=== PATIENT | male | born 1970 ===

== ENCOUNTER 2019-09-28 02:46 | Inpatient (IN) ==
[2019-09-28] MEDS ORDERED: DEXTROSE 50% 25 GM/50 ML VIAL IV PRN (06:10)
[2019-09-28] MEDS ORDERED: GLUCAGON 1 MG VIAL IM PRN (06:10)
[2019-09-28] MEDS ORDERED: SODIUM BICARB INJ 50 MEQ in SODIUM CHLORIDE 0.45% 1,000 ML IV SCH (07:30)
[2019-09-28 07:48] LABS: Basophils % 0.3 % (0.0-0.8); Eosinophils # 0.3 10*3/uL (0.0-0.87); Eosinophils % 2.9 % (0.00-10.9); Hematocrit 27.6 VOL% (42.0-52.0); Hemoglobin 8.3 GM/DL (14.0-18.0); Immature Granulocytes Absolute 0.12 #; Lymphocytes # 1.7 10*3/uL (1.4-4.0); Lymphocytes % 14.9 % (21.2-54.2); Mean Corpuscular HGB Conc 30.1 GM/DL (32-36); Mean Corpuscular Volume 95.8 FL (87-102); Mean Platelet Volume 13.5 FL (9.6-12.0); Monocytes % 9.1 % (1.7-12.7); Neutrophils % 71.8 % (38.7-73.9); Platelet Count 155 T/CUMM (130-400); Red Blood Count 2.88 MC/CUMM (3.8-5.5); Red Cell Distribution Width 15.2 % (9.3-17.3); White Blood Count 11.7 T/CUMM (4-12)
[2019-09-28 08:02] LABS: INR 0.9; PT Patient Result 9.8 SECS (9.6-12.2); Partial Thromboplastin Time 34.1 SECS (20.8-36.0)
[2019-09-28 08:07] LABS: Alanine Aminotransferase 16 U/L (16-61); Albumin 1.9 G/DL (3.4-5.0); Alkaline Phosphatase 132 U/L (45-117); Aspartate Amino Transferase 11 U/L (0-37); Bilirubin,Total < 0.39 MG/DL (0.2-1.0); Blood Urea Nitrogen 77 MG/DL (7-18); Calcium 7.3 MG/DL (8.5-10.1); Estimated Glom Filtration Rate 10 ML/MIN; Glucose 115 MG/DL (74-106); Osmolality,Calculated 298.7 MOS/KG (273-304); Total Protein 6.7 G/DL (6.4-8.3)
[2019-09-28] MEDS: NICOTINE 14 MG/24 HR PATCH TRANSDERM SCH (09:00)
[2019-09-28] MEDS ORDERED: ceFAZolin 1,000 MG in SYRINGE 1 EACH IV ONE (12:08)
[2019-09-28] MEDS: INSULIN LISPRO 100 UNIT/ML SUBCUT SCH ×2 (12:15→18:01)
[2019-09-28] MEDS ORDERED: LIDOCAINE 1%/EPI INJ 20 ML VIAL ONE (13:02)
[2019-09-28] MEDS ORDERED: BUPIVACAINE MPF 0.25% 30 ML VIAL ONE (13:02)
[2019-09-28 13:04] LABS: Hepatitis B Surface Ag Quant < 0.10 Index; Hepatitis B Surface Ag Result Negative (Negative)
[2019-09-28] MEDS ORDERED: HEPARIN 1,000 UNIT/1 ML VIAL ONE (13:04)
[2019-09-28] MEDS ORDERED: HEPARIN 5,000 UNIT/1 ML VIAL ONE (13:38)
[2019-09-28] MEDS ORDERED: propofoL 200 MG/20 ML VIAL IV ONE (14:43)
[2019-09-28] MEDS ORDERED: MIDAZOLAM 2 MG/2 ML VIAL ONE (14:44)
[2019-09-28] MEDS ORDERED: LIDOCAINE 2% 5 ML VIAL ONE (14:44)
[2019-09-28] MEDS ORDERED: DEXAMETHASONE 4 MG/1 ML VIAL ONE (14:44)
[2019-09-28] MEDS ORDERED: ONDANSETRON 4 MG/2 ML VIAL ONE (14:44)
[2019-09-28] MEDS ORDERED: HEPARIN 10,000 UNIT/10 ML VIAL IV SCH (20:00)
[2019-09-28] MEDS ORDERED: DEXTROSE 50% 25 GM/50 ML SYRINGE IV PRN (20:42)
[2019-09-29] MEDS: INSULIN LISPRO 100 UNIT/ML SUBCUT SCH ×4 (00:54→18:14)
[2019-09-29 05:51] LABS: Basophils % 0.2 % (0.0-0.8); Eosinophils % 0.2 % (0.00-10.9); Hematocrit 25.1 VOL% (42.0-52.0); Hemoglobin 7.9 GM/DL (14.0-18.0); Immature Granulocytes % 0.9 %; Lymphocytes % 8.9 % (21.2-54.2); Mean Corpuscular HGB Conc 31.5 GM/DL (32-36); Mean Corpuscular Volume 91.6 FL (87-102); Monocytes % 5.9 % (1.7-12.7); Neutrophils % 83.9 % (38.7-73.9); Platelet Count 175 T/CUMM (130-400); Red Blood Count 2.74 MC/CUMM (3.8-5.5); Red Cell Distribution Width 14.7 % (9.3-17.3); White Blood Count 10.7 T/CUMM (4-12)
[2019-09-29 06:21] LABS: Calcium 7.3 MG/DL (8.5-10.1); Osmolality,Calculated 294.8 MOS/KG (273-304)
[2019-09-29] MEDS: NICOTINE 14 MG/24 HR PATCH TRANSDERM SCH (10:07)
[2019-09-30] MEDS: INSULIN LISPRO 100 UNIT/ML SUBCUT SCH ×3 (00:43→12:05)
[2019-09-30] MEDS: NICOTINE 14 MG/24 HR PATCH TRANSDERM SCH (08:40)
[2019-09-30 12:07] VITALS: BP 177/89
[2019-09-30] MEDS ORDERED: INSULIN GLARGINE 100 UNIT/ML SUBCUT SCH (21:00)
== END 2019-09-30 15:40 | disposition home or self-care (01) | DRG 673 ==
LOC: SUATTDRO 04:14 → N.5E 04:14
PROVIDERS: ADMIT Internal Medicine; ATTEND Internal Medicine

== ENCOUNTER 2020-01-15 19:02 | Inpatient (IN) ==
[2020-01-15] MEDS ORDERED: guaiFENesin/DM ER 600-30 MG TABLET PO PRN (22:27)
[2020-01-15] MEDS ORDERED: hydrALAZINE 20 MG/1 ML VIAL IV PRN (22:27)
[2020-01-15] MEDS ORDERED: ONDANSETRON 4 MG/2 ML VIAL IV PRN (22:27)
[2020-01-15] MEDS ORDERED: diphenhydrAMINE CAP 25 MG CAPSULE PO PRN (22:27)
[2020-01-15] MEDS ORDERED: DEXTROSE 50% 25 GM/50 ML VIAL IV PRN (22:27)
[2020-01-15] MEDS ORDERED: NICOTINE 21 MG/24 HR PATCH TRANSDERM PRN (22:27)
[2020-01-15] MEDS ORDERED: GLUCAGON 1 MG VIAL IM PRN (22:27)
[2020-01-15] MEDS ORDERED: DEXTROSE 10% 250 ML BAG IV PRN (22:46)
[2020-01-15] MEDS: INSULIN REGULAR 100 UNIT/ML SUBCUT SCH (23:15)
[2020-01-15] MEDS: cefTRIAXone 1,000 MG in SYRINGE 1 EACH IV SCH (23:15)
[2020-01-16 00:45] LABS: Basophils % 0.3 % (0.0-0.8); Eosinophils % 0.2 % (0.00-10.9); Hematocrit 41.8 VOL% (42.0-52.0); Hemoglobin 13.1 GM/DL (14.0-18.0); Immature Granulocytes % 0.3 %; Immature Granulocytes Absolute 0.02 #; Lymphocytes # 1.2 10*3/uL (1.4-4.0); Mean Corpuscular HGB Conc 31.3 GM/DL (32-36); Mean Corpuscular Volume 91.7 FL (87-102); Monocytes % 20.5 % (1.7-12.7); Neutrophils % 57.7 % (38.7-73.9); Red Blood Count 4.56 MC/CUMM (3.8-5.5); Red Cell Distribution Width 13.2 % (9.3-17.3); White Blood Count 5.9 T/CUMM (4-12)
[2020-01-16 00:48] LABS: Platelet Count 109 T/CUMM (130-400)
[2020-01-16 00:54] LABS: Alanine Aminotransferase 20 U/L (16-61); Albumin 2.5 G/DL (3.4-5.0); Alkaline Phosphatase 186 U/L (45-117); Aspartate Amino Transferase 31 U/L (0-37); Bilirubin,Total < 0.39 MG/DL (0.2-1.0); Blood Urea Nitrogen 27 MG/DL (7-18); Calcium 7.6 MG/DL (8.5-10.1); Estimated Glom Filtration Rate 14 ML/MIN; Glucose 109 MG/DL (74-106); Osmolality,Calculated 271.4 MOS/KG (273-304); Total Protein 6.9 G/DL (6.4-8.3)
[2020-01-16 01:06] LABS: Ferritin 1261.1 ng/ml (26-388)
[2020-01-16] MEDS: ACETAMINOPHEN 325 MG TABLET PO PRN ×3 (01:40→21:05)
[2020-01-16 02:05] LABS: Eosinophils 2 % (0-10); Lymphocytes 21 % (20-55); Segmented Neutrophils 64 % (50-85)
[2020-01-16 02:06] LABS: Hypochromasia 1+; Platelet Estimate Normal; Reactive Lymphocytes Few
[2020-01-16 02:07] LABS: Total Cells Counted 100
[2020-01-16] MEDS: INSULIN REGULAR 100 UNIT/ML SUBCUT SCH ×3 (06:15→17:48)
[2020-01-16] MEDS: HEPARIN 5,000 UNIT/1 ML VIAL SUBCUT SCH ×2 (08:26→16:34)
[2020-01-16] MEDS: AZITHROMYCIN 250 MG TABLET PO SCH (08:26)
[2020-01-16 08:31] LABS: ABG Base Excess 6.7 MMOL/L (-2.5-2.5); ABG HCO3 30.3 MMOL/L (20-26); ABG Oxygen Saturation 87.4 % (95-100); ABG PCO2 48.7 MM HG (35-48); ABG PO2 53.9 MM HG (80-95); ABG TCO2 28.5 MMOL/L (23-27)
[2020-01-16 09:28] LABS: Basophils % 0.3 % (0.0-0.8); Eosinophils % 0.3 % (0.00-10.9); Hematocrit 39.1 VOL% (42.0-52.0); Hemoglobin 12.1 GM/DL (14.0-18.0); Immature Granulocytes % 0.3 %; Immature Granulocytes Absolute 0.02 #; Lymphocytes # 0.7 10*3/uL (1.4-4.0); Lymphocytes % 10.8 % (21.2-54.2); Mean Corpuscular HGB Conc 30.9 GM/DL (32-36); Mean Corpuscular Volume 92.4 FL (87-102); Neutrophils % 72.3 % (38.7-73.9); Platelet Count 103 T/CUMM (130-400); Red Blood Count 4.23 MC/CUMM (3.8-5.5); Red Cell Distribution Width 13.2 % (9.3-17.3); White Blood Count 6.6 T/CUMM (4-12)
[2020-01-16 10:05] LABS: Band Neutrophils 5 % (0-10); Hypochromasia 1+; Lymphocytes 7 % (20-55); Microcytosis Slight; Segmented Neutrophils 74 % (50-85); Total Cells Counted 100
[2020-01-16 10:06] LABS: Platelet Estimate Decreased
[2020-01-16] MEDS: hydrALAZINE 25 MG TABLET PO SCH ×2 (10:32→21:55)
[2020-01-16] MEDS: FUROSEMIDE 80 MG TABLET PO SCH ×2 (10:32→21:55)
[2020-01-16] MEDS: metOLazone 2.5 MG TABLET PO SCH (10:32)
[2020-01-16] MEDS: GABAPENTIN 300 MG CAPSULE PO SCH (10:32)
[2020-01-16 10:36] LABS: Sedimentation Rate-Westergren 33 MM/HR (0-15)
[2020-01-16 11:06] LABS: Alanine Aminotransferase 20 U/L (16-61); Albumin 2.3 G/DL (3.4-5.0); Alkaline Phosphatase 170 U/L (45-117); Aspartate Amino Transferase 32 U/L (0-37); Bilirubin,Total < 0.39 MG/DL (0.2-1.0); Blood Urea Nitrogen 30 MG/DL (7-18); Calcium 7.5 MG/DL (8.5-10.1); Estimated Glom Filtration Rate 12 ML/MIN; Ferritin 1258.6 ng/ml (26-388); Glucose 134 MG/DL (74-106); Osmolality,Calculated 273.4 MOS/KG (273-304); Total Protein 7.1 G/DL (6.4-8.3)
[2020-01-16] MEDS ORDERED: ACETAMINOPHEN 500 MG TABLET PO ONE (12:23)
[2020-01-16] MEDS: INSULIN GLARGINE 100 UNIT/ML SUBCUT SCH (22:38)
[2020-01-16] MEDS: cefTRIAXone 1,000 MG in SYRINGE 1 EACH IV SCH (23:50)
[2020-01-17] MEDS: INSULIN REGULAR 100 UNIT/ML SUBCUT SCH ×4 (01:13→17:10)
[2020-01-17] MEDS: HEPARIN 5,000 UNIT/1 ML VIAL SUBCUT SCH ×3 (01:14→16:13)
[2020-01-17] MEDS: ACETAMINOPHEN 325 MG TABLET PO PRN ×4 (04:10→21:35)
[2020-01-17 04:45] LABS: ABG Base Excess 4.4 MMOL/L (-2.5-2.5); ABG HCO3 28.2 MMOL/L (20-26); ABG Oxygen Saturation 92.9 % (95-100); ABG PCO2 45.6 MM HG (35-48); ABG PO2 65.1 MM HG (80-95); ABG TCO2 26.4 MMOL/L (23-27); Allen Test Positive; Pt O2 Delivery Device Room Air
[2020-01-17 06:30] LABS: Albumin 2.2 G/DL (3.4-5.0); Bilirubin,Total 0.4 MG/DL (0.2-1.0); Calcium 6.8 MG/DL (8.5-10.1); Ferritin 1399.9 ng/ml (26-388); Osmolality,Calculated 272.5 MOS/KG (273-304); Total Protein 6.7 G/DL (6.4-8.3)
[2020-01-17 06:40] LABS: Basophils % 0.4 % (0.0-0.8); Eosinophils % 0.2 % (0.00-10.9); Hemoglobin 11.8 GM/DL (14.0-18.0); Immature Granulocytes % 0.5 %; Immature Granulocytes Absolute 0.03 #; Lymphocytes # 0.8 10*3/uL (1.4-4.0); Lymphocytes % 15.4 % (21.2-54.2); Mean Corpuscular HGB Conc 31.1 GM/DL (32-36); Mean Corpuscular Volume 92.2 FL (87-102); Monocytes % 17.9 % (1.7-12.7); Neutrophils % 65.6 % (38.7-73.9); Red Blood Count 4.12 MC/CUMM (3.8-5.5); Red Cell Distribution Width 13.2 % (9.3-17.3); White Blood Count 5.5 T/CUMM (4-12)
[2020-01-17 06:59] LABS: Platelet Count 58 T/CUMM (130-400)
[2020-01-17 07:23] LABS: Band Neutrophils 5 % (0-10); Giant Platelets 2+; Lymphocytes 12 % (20-55); Metamyelocytes 1 %; Platelet Estimate Decreased; Segmented Neutrophils 63 % (50-85)
[2020-01-17 07:24] LABS: Total Cells Counted 100
[2020-01-17] MEDS: metOLazone 2.5 MG TABLET PO SCH (08:01)
[2020-01-17] MEDS: AZITHROMYCIN 250 MG TABLET PO SCH (08:01)
[2020-01-17] MEDS: FUROSEMIDE 80 MG TABLET PO SCH ×2 (08:01→21:20)
[2020-01-17] MEDS: GABAPENTIN 300 MG CAPSULE PO SCH (08:01)
[2020-01-17] MEDS: hydrALAZINE 25 MG TABLET PO SCH ×2 (08:01→21:20)
[2020-01-17] MEDS ORDERED: SODIUM CHLORIDE 0.65% NASAL SPRAY 45 ML BOTTLE BOTH NARES PRN (08:07)
[2020-01-17 08:19] LABS: Sedimentation Rate-Westergren 42 MM/HR (0-15)
[2020-01-17] MEDS: INSULIN GLARGINE 100 UNIT/ML SUBCUT SCH (22:37)
[2020-01-17] MEDS: cefTRIAXone 1,000 MG in SYRINGE 1 EACH IV SCH (23:10)
[2020-01-18] MEDS: HEPARIN 5,000 UNIT/1 ML VIAL SUBCUT SCH ×3 (00:10→16:44)
[2020-01-18] MEDS: INSULIN REGULAR 100 UNIT/ML SUBCUT SCH ×2 (01:51→07:02)
[2020-01-18 05:40] LABS: ABG Base Excess 1.1 MMOL/L (-2.5-2.5); ABG HCO3 26.2 MMOL/L (20-26); ABG Oxygen Saturation 85.6 % (95-100); ABG PCO2 43.6 MM HG (35-48); ABG PH 7.397 (7.35-7.45); ABG PO2 52.7 MM HG (80-95); ABG TCO2 27.6 MMOL/L (23-27)
[2020-01-18 06:31] LABS: Alanine Aminotransferase 17 U/L (16-61); Albumin 2.1 G/DL (3.4-5.0); Alkaline Phosphatase 165 U/L (45-117); Aspartate Amino Transferase 47 U/L (0-37); Bilirubin,Total < 0.39 MG/DL (0.2-1.0); Blood Urea Nitrogen 57 MG/DL (7-18); Calcium 6.1 MG/DL (8.5-10.1); Estimated Glom Filtration Rate 7 ML/MIN; Ferritin 1800.1 ng/ml (26-388); Glucose 116 MG/DL (74-106); Osmolality,Calculated 269.4 MOS/KG (273-304); Total Protein 6.5 G/DL (6.4-8.3)
[2020-01-18 07:59] LABS: Basophils % 0.2 % (0.0-0.8); Hematocrit 35.1 VOL% (42.0-52.0); Immature Granulocytes % 0.5 %; Immature Granulocytes Absolute 0.03 #; Lymphocytes # 1.1 10*3/uL (1.4-4.0); Lymphocytes % 18.8 % (21.2-54.2); Mean Corpuscular HGB Conc 31.3 GM/DL (32-36); Mean Corpuscular Volume 91.2 FL (87-102); Monocytes % 9.8 % (1.7-12.7); Neutrophils % 70.7 % (38.7-73.9); Red Blood Count 3.85 MC/CUMM (3.8-5.5); Red Cell Distribution Width 13.3 % (9.3-17.3); White Blood Count 5.7 T/CUMM (4-12)
[2020-01-18 08:01] LABS: Platelet Count 80 T/CUMM (130-400)
[2020-01-18 08:16] LABS: Hypochromasia 1+; Microcytosis Slight
[2020-01-18] MEDS ORDERED: SODIUM CHLORIDE 0.9% 1,000 ML IV PRN (08:54)
[2020-01-18] MEDS: hydrALAZINE 25 MG TABLET PO SCH (08:58)
[2020-01-18] MEDS: GABAPENTIN 300 MG CAPSULE PO SCH (08:58)
[2020-01-18] MEDS: FUROSEMIDE 80 MG TABLET PO SCH ×3 (08:58→20:30)
[2020-01-18] MEDS: metOLazone 2.5 MG TABLET PO SCH (08:58)
[2020-01-18] MEDS: AZITHROMYCIN 250 MG TABLET PO SCH (08:58)
[2020-01-18 09:27] LABS: Sedimentation Rate-Westergren 52 MM/HR (0-15)
[2020-01-18] MEDS ORDERED: diphenhydrAMINE CAP 25 MG CAPSULE PO PRN (09:36)
[2020-01-18] MEDS ORDERED: CALCIUM ACETATE 667 MG CAPSULE PO SCH (10:00)
[2020-01-18] MEDS ORDERED: INSULIN LISPRO 100 UNIT/ML SUBCUT SCH (12:00)
[2020-01-18] MEDS ORDERED: LOSARTAN 25 MG TABLET PO SCH (12:00)
[2020-01-18] MEDS: carvediloL 25 MG TABLET PO SCH ×2 (12:11→20:30)
[2020-01-18] MEDS: CALCIUM ACETATE 667 MG CAPSULE PO SCH ×2 (12:11→16:45)
[2020-01-18] MEDS: INSULIN LISPRO 100 UNIT/ML SUBCUT SCH ×3 (12:36→20:30)
[2020-01-18] MEDS: ACETAMINOPHEN 325 MG TABLET PO PRN (13:12)
[2020-01-18 14:21] LABS: ABG Base Excess -0.2 MMOL/L (-2.5-2.5); ABG HCO3 24.2 MMOL/L (20-26); ABG Oxygen Saturation 95.1 % (95-100); ABG PCO2 42.8 MM HG (35-48); ABG PH 7.376 (7.35-7.45); ABG PO2 79.9 MM HG (80-95); ABG TCO2 22.6 MMOL/L (23-27)
[2020-01-18] MEDS ORDERED: HEPARIN 10,000 UNIT/10 ML VIAL IV SCH (16:30)
[2020-01-19] MEDS: cefTRIAXone 1,000 MG in SYRINGE 1 EACH IV SCH (00:32)
[2020-01-19] MEDS: HEPARIN 5,000 UNIT/1 ML VIAL SUBCUT SCH ×3 (01:38→16:45)
[2020-01-19] MEDS ORDERED: EPINEPHrine 1 MG/ML VIAL ONE (02:29)
[2020-01-19 02:53] LABS: ABG Base Excess -16.7 MMOL/L (-2.5-2.5); ABG Oxygen Saturation 80.3 % (95-100); ABG PO2 74.1 MM HG (80-95); ABG TCO2 18.3 MMOL/L (23-27)
[2020-01-19 02:58] LABS: ABG HCO3 11.8 MMOL/L (20-26); ABG PH 6.934 (7.35-7.45)
[2020-01-19 03:11] LABS: Basophils % 0.1 % (0.0-0.8); Immature Granulocytes % 0.6 %; Immature Granulocytes Absolute 0.07 #; Monocytes % 3.3 % (1.7-12.7)
[2020-01-19] MEDS ORDERED: DEXTROSE 50% 25 GM/50 ML SYRINGE IV PRN (03:16)
[2020-01-19] MEDS ORDERED: SODIUM BICARBONATE 50 MEQ/50 ML VIAL IV ONE ×2 (03:17→03:54)
[2020-01-19] MEDS ORDERED: SODIUM BICARBONATE 50 MEQ/50 ML SYRINGE IV ONE (03:18)
[2020-01-19] MEDS ORDERED: EPINEPHrine 1 MG/10 ML SYRINGE ONE (03:18)
[2020-01-19] MEDS ORDERED: NOREPINEPHRINE 4 MG/4 ML VIAL IV ONE (03:19)
[2020-01-19 03:26] LABS: Alanine Aminotransferase 50 U/L (16-61); Alkaline Phosphatase 165 U/L (45-117); Aspartate Amino Transferase 179 U/L (0-37); Bilirubin,Total < 0.39 MG/DL (0.2-1.0); Blood Urea Nitrogen 34 MG/DL (7-18); Calcium 8.2 MG/DL (8.5-10.1); Estimated Glom Filtration Rate 9 ML/MIN; Glucose 140 MG/DL (74-106); Osmolality,Calculated 282.8 MOS/KG (273-304); Total Protein 6.9 G/DL (6.4-8.3)
[2020-01-19] MEDS: NOREPINEPHRINE 8 MG in SODIUM CHLORIDE 0.9% 242 ML IV PRN ×3 (03:33→21:18)
[2020-01-19 03:52] LABS: Hemoglobin 11.7 GM/DL (14.0-18.0); Lymphocytes # 1.8 10*3/uL (1.4-4.0); Lymphocytes % 15.2 % (21.2-54.2); Mean Corpuscular HGB Conc 28.5 GM/DL (32-36); Mean Corpuscular Volume 100.5 FL (87-102); Neutrophils % 80.8 % (38.7-73.9); Platelet Count 51 T/CUMM (130-400); Red Blood Count 4.08 MC/CUMM (3.8-5.5); Red Cell Distribution Width 13.3 % (9.3-17.3); White Blood Count 11.7 T/CUMM (4-12)
[2020-01-19 04:15] LABS: Band Neutrophils 9 % (0-10); Lymphocytes 12 % (20-55); Platelet Estimate Decreased; Segmented Neutrophils 76 % (50-85); Total Cells Counted 100
[2020-01-19 04:32] LABS: INR 1.1; PT Patient Result 11.4 SECS (9.8-11.9)
[2020-01-19 04:36] LABS: Partial Thromboplastin Time > 211.8 SECS (23.9-33.8)
[2020-01-19 05:42] LABS: INR 1.1; PT Patient Result 11.2 SECS (9.8-11.9)
[2020-01-19 05:44] LABS: Partial Thromboplastin Time 112.7 SECS (23.9-33.8)
[2020-01-19] MEDS ORDERED: INSULIN LISPRO 100 UNIT/ML SUBCUT SCH (06:00)
[2020-01-19 07:38] LABS: Basophils % 0.1 % (0.0-0.8); Hematocrit 39.3 VOL% (42.0-52.0); Hemoglobin 12.3 GM/DL (14.0-18.0); Immature Granulocytes % 0.9 %; Immature Granulocytes Absolute 0.09 #; Lymphocytes # 0.9 10*3/uL (1.4-4.0); Lymphocytes % 9.2 % (21.2-54.2); Mean Corpuscular HGB Conc 31.3 GM/DL (32-36); Mean Platelet Volume 11.9 FL (9.6-12.0); Monocytes % 3.8 % (1.7-12.7); Red Blood Count 4.18 MC/CUMM (3.8-5.5); White Blood Count 9.9 T/CUMM (4-12)
[2020-01-19 07:43] LABS: Platelet Count 161 T/CUMM (130-400)
[2020-01-19 07:51] LABS: Hypochromasia 1+; Lymphocytes 6 % (20-55); Microcytosis Slight; Platelet Estimate Adequate; Segmented Neutrophils 88 % (50-85); Total Cells Counted 100
[2020-01-19 08:05] LABS: Ferritin 4812.1 ng/ml (26-388)
[2020-01-19] MEDS: carvediloL 25 MG TABLET PO SCH (08:11)
[2020-01-19 08:48] LABS: Sedimentation Rate-Westergren 59 MM/HR (0-15)
[2020-01-19] MEDS: CALCIUM ACETATE 667 MG CAPSULE PO SCH ×3 (09:00→16:45)
[2020-01-19] MEDS: AZITHROMYCIN 250 MG TABLET PO SCH (09:00)
[2020-01-19] MEDS: ACETAMINOPHEN 325 MG TABLET PO PRN (09:00)
[2020-01-19] MEDS ORDERED: PANTOPRAZOLE 40 MG TABLET PO SCH (09:00)
[2020-01-19 09:31] LABS: ABG Base Excess 1.5 MMOL/L (-2.5-2.5); ABG HCO3 25.7 MMOL/L (20-26); ABG Oxygen Saturation 98.5 % (95-100); ABG PCO2 32.2 MM HG (35-48); ABG PH 7.484 (7.35-7.45); ABG TCO2 20.9 MMOL/L (23-27)
[2020-01-19] MEDS ORDERED: HEPARIN/NACL 0.9% 2 UNITS/ML 500 ML IV ONE (09:36)
[2020-01-19] MEDS: methylPREDNISolone SOD SUC 40 MG/1 ML VIAL IV SCH ×2 (10:00→16:46)
[2020-01-19] MEDS ORDERED: MAGNESIUM SULF RIDER 1 GM in PREMIX 1 EACH IV PRN (10:17)
[2020-01-19] MEDS ORDERED: POTASSIUM CHLORIDE RIDER 100 ML IV PRN (10:18)
[2020-01-19] MEDS: HYDROmorphone INJ 50 MG in SODIUM CHLORIDE 0.9% 45 ML IV SCH (11:00)
[2020-01-19] MEDS: MIDAZOLAM 100 MG in SODIUM CHLORIDE 0.9% 80 ML IV PRN (11:00)
[2020-01-19] MEDS: CISATRACURIUM 200 MG in SODIUM CHLORIDE 0.9% 180 ML IV PRN (11:00)
[2020-01-19 11:43] LABS: INR 1.2; PT Patient Result 12.3 SECS (9.8-11.9)
[2020-01-19 11:44] LABS: Partial Thromboplastin Time 87.3 SECS (23.9-33.8)
[2020-01-19] MEDS ORDERED: POTASSIUM CHLORIDE RIDER 10 MEQ in PREMIX 1 EACH IV PRN ×2 (12:01→18:58)
[2020-01-19] MEDS ORDERED: POTASSIUM CHLORIDE RIDER 20 MEQ in PREMIX 1 EACH IV PRN (12:01)
[2020-01-19] MEDS ORDERED: MAGNESIUM SULF RIDER 4 GM in PREMIX 1 EACH IV PRN (12:03)
[2020-01-19] MEDS ORDERED: MAGNESIUM SULF RIDER 2 GM in PREMIX 1 EACH IV PRN (12:03)
[2020-01-19 12:22] LABS: Alanine Aminotransferase 189 U/L (16-61); Albumin 1.9 G/DL (3.4-5.0); Alkaline Phosphatase 208 U/L (45-117); Amylase 304 U/L (25-115); Aspartate Amino Transferase 1307 U/L (0-37); Blood Urea Nitrogen 45 MG/DL (7-18); CKMB % 0.1 %; Calcium 6.6 MG/DL (8.5-10.1); Estimated Glom Filtration Rate 9 ML/MIN; Glucose 160 MG/DL (74-106); Osmolality,Calculated 291.5 MOS/KG (273-304); Total Protein 6.9 G/DL (6.4-8.3)
[2020-01-19] MEDS: INSULIN REGULAR 100 UNIT/ML IV SCH ×3 (12:31→20:30)
[2020-01-19 12:45] LABS: Basophils % 0.2 % (0.0-0.8); Hematocrit 40.3 VOL% (42.0-52.0); Immature Granulocytes Absolute 0.06 #; Lymphocytes # 0.6 10*3/uL (1.4-4.0); Lymphocytes % 8.7 % (21.2-54.2); Mean Corpuscular HGB Conc 32.3 GM/DL (32-36); Monocytes % 1.4 % (1.7-12.7); Neutrophils % 88.7 % (38.7-73.9); Platelet Count 79 T/CUMM (130-400); Red Blood Count 4.53 MC/CUMM (3.8-5.5); Red Cell Distribution Width 13.5 % (9.3-17.3); White Blood Count 6.3 T/CUMM (4-12)
[2020-01-19 13:29] LABS: Band Neutrophils 29 % (0-10); Eosinophils 1 % (0-10); Lymphocytes 7 % (20-55); Metamyelocytes 1 %; Platelet Estimate Decreased; Segmented Neutrophils 60 % (50-85); Total Cells Counted 100
[2020-01-19] MEDS: MINERAL OIL/PETROLATUM OPH OINT 3.5 GM TUBE BOTH EYES SCH ×2 (14:59→21:00)
[2020-01-19 17:46] LABS: Basophils % 0.6 % (0.0-0.8); Eosinophils % 0.3 % (0.00-10.9); Hematocrit 40.6 VOL% (42.0-52.0); Hemoglobin 12.8 GM/DL (14.0-18.0); Immature Granulocytes % 1.1 %; Immature Granulocytes Absolute 0.08 #; Lymphocytes # 1.1 10*3/uL (1.4-4.0); Lymphocytes % 15.8 % (21.2-54.2); Mean Corpuscular HGB Conc 31.5 GM/DL (32-36); Mean Corpuscular Volume 91.4 FL (87-102); Neutrophils % 81.2 % (38.7-73.9); Platelet Count 69 T/CUMM (130-400); Red Blood Count 4.44 MC/CUMM (3.8-5.5); Red Cell Distribution Width 13.4 % (9.3-17.3)
[2020-01-19 18:12] LABS: Band Neutrophils 22 % (0-10); Lymphocytes 19 % (20-55); Metamyelocytes 8 %; Segmented Neutrophils 51 % (50-85); Total Cells Counted 100
[2020-01-19 18:13] LABS: Platelet Estimate Decreased; Reactive Lymphocytes 1+
[2020-01-19 18:36] LABS: Blood Urea Nitrogen 46 MG/DL (7-18); CKMB % 0.1 %; Calcium 6.9 MG/DL (8.5-10.1); Estimated Glom Filtration Rate 9 ML/MIN; Glucose 189 MG/DL (74-106); Osmolality,Calculated 289.8 MOS/KG (273-304)
[2020-01-19 19:03] LABS: INR 1.2; PT Patient Result 12.7 SECS (9.8-11.9)
[2020-01-19 19:06] LABS: Partial Thromboplastin Time 117.2 SECS (23.9-33.8)
[2020-01-19] MEDS: POTASSIUM CHLORIDE RIDER 20 MEQ in PREMIX 1 EACH IV PRN ×2 (20:05→22:43)
[2020-01-20] MEDS: methylPREDNISolone SOD SUC 40 MG/1 ML VIAL IV SCH ×3 (00:10→17:12)
[2020-01-20] MEDS: cefTRIAXone 1,000 MG in SYRINGE 1 EACH IV SCH ×2 (00:10→22:20)
[2020-01-20 00:30] LABS: Basophils % 0.4 % (0.0-0.8); Eosinophils % 0.1 % (0.00-10.9); Hematocrit 42.7 VOL% (42.0-52.0); Hemoglobin 13.2 GM/DL (14.0-18.0); Immature Granulocytes % 0.7 %; Immature Granulocytes Absolute 0.07 #; Lymphocytes % 10.3 % (21.2-54.2); Mean Corpuscular HGB Conc 30.9 GM/DL (32-36); Monocytes % 0.9 % (1.7-12.7); Neutrophils % 87.6 % (38.7-73.9); Red Blood Count 4.64 MC/CUMM (3.8-5.5); Red Cell Distribution Width 13.7 % (9.3-17.3); White Blood Count 9.5 T/CUMM (4-12)
[2020-01-20 00:31] LABS: Platelet Count 64 T/CUMM (130-400)
[2020-01-20 01:01] LABS: INR 1.2; PT Patient Result 12.4 SECS (9.8-11.9)
[2020-01-20 01:05] LABS: Partial Thromboplastin Time 124.7 SECS (23.9-33.8)
[2020-01-20 01:22] LABS: Blood Urea Nitrogen 48 MG/DL (7-18); CKMB % 0.2 %; Calcium 6.7 MG/DL (8.5-10.1); Estimated Glom Filtration Rate 8 ML/MIN; Glucose 273 MG/DL (74-106)
[2020-01-20] MEDS: INSULIN REGULAR 100 UNIT/ML IV SCH ×7 (02:00→20:00)
[2020-01-20] MEDS: POTASSIUM CHLORIDE RIDER 20 MEQ in PREMIX 1 EACH IV PRN ×2 (02:00→05:48)
[2020-01-20 02:51] LABS: Band Neutrophils 22 % (0-10); Lymphocytes 9 % (20-55); Metamyelocytes 10 %; Myelocytes 4 %; Segmented Neutrophils 54 % (50-85)
[2020-01-20 02:52] LABS: Giant Platelets Few; Platelet Estimate Decreased
[2020-01-20 02:54] LABS: Reactive Lymphocytes 1+; Total Cells Counted 100
[2020-01-20 04:12] LABS: ABG HCO3 20.2 MMOL/L (20-26); ABG Oxygen Saturation 90.3 % (95-100); ABG PCO2 30.2 MM HG (35-48); ABG PH 7.399 (7.35-7.45); ABG PO2 64.1 MM HG (80-95); ABG TCO2 16.5 MMOL/L (23-27)
[2020-01-20 04:20] LABS: Basophils % 0.4 % (0.0-0.8); Hematocrit 40.2 VOL% (42.0-52.0); Hemoglobin 12.7 GM/DL (14.0-18.0); Immature Granulocytes % 1.4 %; Immature Granulocytes Absolute 0.13 #; Lymphocytes # 0.5 10*3/uL (1.4-4.0); Lymphocytes % 5.7 % (21.2-54.2); Mean Corpuscular HGB Conc 31.6 GM/DL (32-36); Mean Corpuscular Volume 92.4 FL (87-102); Monocytes % 1.1 % (1.7-12.7); Neutrophils % 91.4 % (38.7-73.9); Red Blood Count 4.35 MC/CUMM (3.8-5.5); Red Cell Distribution Width 13.6 % (9.3-17.3); White Blood Count 9.4 T/CUMM (4-12)
[2020-01-20 04:23] LABS: Platelet Count 61 T/CUMM (130-400)
[2020-01-20 04:40] LABS: Band Neutrophils 16 % (0-10); Hypochromasia 1+; Lymphocytes 7 % (20-55); Platelet Estimate Decreased; Segmented Neutrophils 76 % (50-85); Total Cells Counted 100
[2020-01-20 05:27] LABS: Sedimentation Rate-Westergren 50 MM/HR (0-15)
[2020-01-20 05:31] LABS: Albumin 1.4 G/DL (3.4-5.0); Bilirubin,Total 0.43 MG/DL (0.2-1.0); Calcium 6.2 MG/DL (8.5-10.1); Total Protein 5.9 G/DL (6.4-8.3)
[2020-01-20 06:37] LABS: Basophils % 0.4 % (0.0-0.8); Eosinophils # 0.1 10*3/uL (0.0-0.87); Eosinophils % 0.7 % (0.00-10.9); Hematocrit 40.3 VOL% (42.0-52.0); Immature Granulocytes % 1.3 %; Immature Granulocytes Absolute 0.14 #; Lymphocytes # 0.5 10*3/uL (1.4-4.0); Lymphocytes % 5.1 % (21.2-54.2); Mean Corpuscular HGB Conc 32.3 GM/DL (32-36); Mean Corpuscular Volume 89.2 FL (87-102); Monocytes % 0.9 % (1.7-12.7); Neutrophils % 91.6 % (38.7-73.9); Red Blood Count 4.52 MC/CUMM (3.8-5.5); Red Cell Distribution Width 13.6 % (9.3-17.3); White Blood Count 10.4 T/CUMM (4-12)
[2020-01-20 06:38] LABS: Ferritin 73210.4 ng/ml (26-388)
[2020-01-20 06:41] LABS: Platelet Count 66 T/CUMM (130-400)
[2020-01-20 06:48] LABS: Band Neutrophils 9 % (0-10); Lymphocytes 9 % (20-55); Platelet Estimate Decreased; Segmented Neutrophils 79 % (50-85); Total Cells Counted 100
[2020-01-20 06:58] LABS: INR 1.2; PT Patient Result 12.7 SECS (9.8-11.9)
[2020-01-20 06:59] LABS: CKMB % 0.2 %; Calcium 6.5 MG/DL (8.5-10.1); Partial Thromboplastin Time 139.8 SECS (23.9-33.8)
[2020-01-20 07:00] LABS: Troponin I 10.4 NG/ML (0.00-0.045)
[2020-01-20] MEDS: CALCIUM ACETATE 667 MG CAPSULE PO SCH ×3 (07:35→16:07)
[2020-01-20] MEDS ORDERED: HEPARIN 5,000 UNIT/1 ML VIAL SUBCUT SCH (09:00)
[2020-01-20] MEDS: AZITHROMYCIN 250 MG TABLET PO SCH (09:19)
[2020-01-20] MEDS: PANTOPRAZOLE 40 MG VIAL IV SCH (09:23)
[2020-01-20] MEDS: MINERAL OIL/PETROLATUM OPH OINT 3.5 GM TUBE BOTH EYES SCH ×3 (09:27→21:17)
[2020-01-20] MEDS: NOREPINEPHRINE 8 MG in SODIUM CHLORIDE 0.9% 242 ML IV PRN (10:06)
[2020-01-20 10:07] LABS: Basophils % 0.2 % (0.0-0.8); Hematocrit 42.7 VOL% (42.0-52.0); Hemoglobin 13.4 GM/DL (14.0-18.0); Immature Granulocytes % 1.6 %; Immature Granulocytes Absolute 0.15 #; Lymphocytes # 0.4 10*3/uL (1.4-4.0); Lymphocytes % 4.6 % (21.2-54.2); Mean Corpuscular HGB Conc 31.4 GM/DL (32-36); Mean Corpuscular Volume 90.7 FL (87-102); Monocytes % 0.3 % (1.7-12.7); Neutrophils % 93.3 % (38.7-73.9); Platelet Count 70 T/CUMM (130-400); Red Blood Count 4.71 MC/CUMM (3.8-5.5); Red Cell Distribution Width 13.7 % (9.3-17.3); White Blood Count 9.5 T/CUMM (4-12)
[2020-01-20] MEDS: HYDROmorphone INJ 50 MG in SODIUM CHLORIDE 0.9% 45 ML IV SCH (10:07)
[2020-01-20 10:20] LABS: Calcium 6.3 MG/DL (8.5-10.1); Osmolality,Calculated 294.2 MOS/KG (273-304)
[2020-01-20 10:31] LABS: Band Neutrophils 12 % (0-10); Lymphocytes 5 % (20-55); Platelet Estimate Decreased; Segmented Neutrophils 82 % (50-85); Total Cells Counted 100
[2020-01-20] MEDS ORDERED: DEXTROSE 5% NACL 0.45% 1,000 ML IV SCH (11:00)
[2020-01-20 12:33] LABS: INR 1.2; PT Patient Result 12.5 SECS (9.8-11.9)
[2020-01-20 12:40] LABS: Partial Thromboplastin Time 122.8 SECS (23.9-33.8)
[2020-01-20 18:05] LABS: Basophils # 0.1 10*3/uL (0.0-0.2); Basophils % 0.5 % (0.0-0.8); Eosinophils % 0.1 % (0.00-10.9); Hematocrit 40.9 VOL% (42.0-52.0); Immature Granulocytes % 6.5 %; Immature Granulocytes Absolute 0.89 #; Lymphocytes # 0.6 10*3/uL (1.4-4.0); Lymphocytes % 4.5 % (21.2-54.2); Mean Corpuscular HGB Conc 31.8 GM/DL (32-36); Mean Corpuscular Volume 90.9 FL (87-102); Monocytes % 1.1 % (1.7-12.7); Neutrophils % 87.3 % (38.7-73.9); Platelet Count 69 T/CUMM (130-400); Red Cell Distribution Width 13.9 % (9.3-17.3); White Blood Count 13.7 T/CUMM (4-12)
[2020-01-20 18:15] LABS: Blood Urea Nitrogen 56 MG/DL (7-18); Estimated Glom Filtration Rate 8 ML/MIN; Glucose 349 MG/DL (74-106)
[2020-01-20 18:26] LABS: INR 1.2; PT Patient Result 12.8 SECS (9.8-11.9); Partial Thromboplastin Time 76.9 SECS (23.9-33.8)
[2020-01-20 18:38] LABS: Band Neutrophils 29 % (0-10); Lymphocytes 3 % (20-55); Myelocytes 2 %; Platelet Estimate Decreased; Segmented Neutrophils 64 % (50-85); Total Cells Counted 100
[2020-01-20] MEDS: INSULIN REGULAR DRIP 100 ML IV PRN (21:15)
[2020-01-20] MEDS: CISATRACURIUM 200 MG in SODIUM CHLORIDE 0.9% 180 ML IV PRN (22:20)
[2020-01-20] MEDS: MIDAZOLAM 100 MG in SODIUM CHLORIDE 0.9% 80 ML IV PRN (22:55)
[2020-01-20] MEDS ORDERED: SODIUM CHLORIDE 0.45% 1,000 ML IV SCH (23:30)
[2020-01-21 00:36] LABS: Calcium 6.4 MG/DL (8.5-10.1); Osmolality,Calculated 296.2 MOS/KG (273-304)
[2020-01-21] MEDS: methylPREDNISolone SOD SUC 40 MG/1 ML VIAL IV SCH ×2 (00:45→08:39)
[2020-01-21 00:46] LABS: Basophils # 0.1 10*3/uL (0.0-0.2); Basophils % 0.4 % (0.0-0.8); Hematocrit 42.3 VOL% (42.0-52.0); Hemoglobin 13.1 GM/DL (14.0-18.0); Immature Granulocytes % 9.5 %; Immature Granulocytes Absolute 1.56 #; Lymphocytes # 0.8 10*3/uL (1.4-4.0); Lymphocytes % 5.1 % (21.2-54.2); Mean Corpuscular Volume 92.8 FL (87-102); Platelet Count 65 T/CUMM (130-400); Red Blood Count 4.56 MC/CUMM (3.8-5.5); Red Cell Distribution Width 13.9 % (9.3-17.3); White Blood Count 16.5 T/CUMM (4-12)
[2020-01-21 00:56] LABS: INR 1.2
[2020-01-21 00:57] LABS: Partial Thromboplastin Time 68.6 SECS (23.9-33.8)
[2020-01-21 04:16] LABS: Band Neutrophils 17 % (0-10); Lymphocytes 7 % (20-55); Metamyelocytes 6 %; Segmented Neutrophils 68 % (50-85); Total Cells Counted 100
[2020-01-21 04:17] LABS: Platelet Estimate Decreased
[2020-01-21 05:10] LABS: ABG Base Excess -7.8 MMOL/L (-2.5-2.5); ABG HCO3 17.9 MMOL/L (20-26); ABG Oxygen Saturation 80.5 % (95-100); ABG PCO2 34.1 MM HG (35-48); ABG PH 7.319 (7.35-7.45); ABG PO2 53.3 MM HG (80-95); ABG TCO2 15.6 MMOL/L (23-27)
[2020-01-21] MEDS: NOREPINEPHRINE 8 MG in SODIUM CHLORIDE 0.9% 242 ML IV PRN (05:15)
[2020-01-21 05:31] LABS: Basophils # 0.1 10*3/uL (0.0-0.2); Basophils % 0.6 % (0.0-0.8); Hematocrit 42.8 VOL% (42.0-52.0); Hemoglobin 13.1 GM/DL (14.0-18.0); Immature Granulocytes Absolute 2.83 #; Lymphocytes # 1.2 10*3/uL (1.4-4.0); Lymphocytes % 5.4 % (21.2-54.2); Mean Corpuscular HGB Conc 30.6 GM/DL (32-36); Mean Corpuscular Volume 92.8 FL (87-102); Monocytes % 0.9 % (1.7-12.7); Neutrophils % 80.1 % (38.7-73.9); Red Blood Count 4.61 MC/CUMM (3.8-5.5); Red Cell Distribution Width 14.1 % (9.3-17.3); White Blood Count 21.7 T/CUMM (4-12)
[2020-01-21 05:33] LABS: Platelet Count 72 T/CUMM (130-400)
[2020-01-21 05:38] LABS: INR 1.3; PT Patient Result 13.4 SECS (9.8-11.9); Partial Thromboplastin Time 59.3 SECS (23.9-33.8)
[2020-01-21] MEDS: INSULIN REGULAR DRIP 100 ML IV PRN (05:59)
[2020-01-21 06:00] LABS: Band Neutrophils 11 % (0-10); Hypochromasia 1+; Lymphocytes 4 % (20-55); Metamyelocytes 3 %; Myelocytes 3 %; Platelet Estimate Decreased; Segmented Neutrophils 77 % (50-85); Total Cells Counted 100
[2020-01-21 06:21] LABS: CKMB % 0.2 %
[2020-01-21 06:35] LABS: Albumin 1.3 G/DL (3.4-5.0); Bilirubin,Total 0.7 MG/DL (0.2-1.0); Calcium 6.3 MG/DL (8.5-10.1); Total Protein 6.3 G/DL (6.4-8.3)
[2020-01-21 06:39] LABS: Sedimentation Rate-Westergren 70 MM/HR (0-15)
[2020-01-21] MEDS: CALCIUM ACETATE 667 MG CAPSULE PO SCH (07:19)
[2020-01-21 08:22] VITALS: BP 95/51
[2020-01-21] MEDS: PANTOPRAZOLE 40 MG VIAL IV SCH (08:30)
[2020-01-21] MEDS: MINERAL OIL/PETROLATUM OPH OINT 3.5 GM TUBE BOTH EYES SCH (08:39)
[2020-01-21] MEDS ORDERED: LORazepam 2 MG/1 ML VIAL IV PRN (09:21)
[2020-01-21] MEDS ORDERED: MORPHINE 4 MG/1 ML VIAL IV PRN (09:21)
[2020-01-21] MEDS: HYDROmorphone INJ 50 MG in SODIUM CHLORIDE 0.9% 45 ML IV SCH (10:31)
[2020-01-21] MEDS ORDERED: HEPARIN 5,000 UNIT/1 ML VIAL SUBCUT SCH (11:00)
[2020-01-21] MEDS ORDERED: INSULIN REGULAR 100 UNIT/ML SUBCUT SCH ×2 (12:00)
== END 2020-01-21 12:10 | disposition expired | DRG 208 ==
LOC: N.2W 22:22 → SUATTDRO 22:22 → N.ICU 01-19 02:39
PROVIDERS: ADMIT Internal Medicine; ATTEND Internal Medicine